=== PATIENT | female | born 1995 | race Caucasian/White ===

== ENCOUNTER 2017-01-12 21:50 | Emergency (ER) | payer OTHER ==
[~2017-01-12] VITALS: Ht 160 cm; Wt 103.5 kg
[~2017-01-12 21:50] MED LIST: CLIN-73 PO; NAPR-260 PO
[2017-01-12 21:53] VITALS: Ht 160 cm; Wt 103.5 kg
[2017-01-12] MEDS ORDERED: LIDOCAINE 1% (MDV) 20 ML INJ INJ STA (23:01)
[2017-01-12] MEDS ORDERED: CLIN-73 PO (23:29)
[2017-01-12] MEDS ORDERED: SULF1TAB31 PO (23:29)
[2017-01-12] MEDS ORDERED: IBUP-1542 PO (23:29)
[2017-01-12] MEDS ORDERED: HYDR-906 PO (23:29)
--- NOTE | 2017-01-12 23:32 | ERD ---
ER Documentation Chief Complaint Date/Time DATE: 01/12/17 TIME: 23:30 Chief Complaint CYST/ABSCESS ON HER LEFT UPPER ARM HPI 21-year-old female presents with an area of redness and swelling to her left axilla this is been for 1 week. It is painful and red and getting larger. Denies any fever bleeding or drainage. Pain is 8 out of 10 worse when touched or moved. ROS All systems reviewed and are negative except as per history of present illness. Medications Home Meds Active Scripts Hydrocodone/Acetaminophen (Manquin 5-325 Tablet) 1 Each Tablet, 1 EACH PO Q6, #20 TAB Prov:GILLIAN LUNDBERG PA-C 01/12/17 Ibuprofen* (Ibuprofen*) 600 Mg Tablet, 600 MG PO Q6, #30 TAB Prov:GILLIAN LUNDBERG PA-C 01/12/17 Clindamycin Hcl* (Clindamycin Hcl*) 300 Mg Capsule, 300 MG PO TID for 10 Days, CAP Prov:GILLIAN LUNDBERG PA-C 01/12/17 Sulfamethoxazole/Trimethoprim* (Bactrim Ds* Tablet) 1 Each Tablet, 1 TAB PO BID , #14 TAB Prov:GILLIAN LUNDBERG PA-C 01/12/17 Naproxen* (Naprosyn*) 500 Mg Tablet, 500 MG PO BID Y for PAIN AND/OR INFLAMMATION, #20 TAB Prov:Naty Swann PA-C 07/17/16 Clindamycin Hcl* (Clindamycin Hcl*) 300 Mg Capsule, 450 MG PO TID for 7 Days, # 21 CAP Prov:Naty Swann PA-C 07/17/16 Allergies Allergies: Coded Allergies: Penicillins (Verified Allergy, Intermediate, Rash, 07/17/16) FmHx Family History: No diabetes Physical Exam Vitals Vital Signs Date Time Temp Pulse Resp B/P Pulse Ox O2 Delivery O2 Flow Rate FiO2 01/12/17 21:53 98.8 79 18 121/73 100 Physical Exam Const: [] Head: Atraumatic Eyes: Normal Conjunctiva ENT: Normal External Ears, Nose and Mouth. Neck: Full range of motion..~ No meningismus. Resp: Clear to auscultation bilaterally Cardio: Regular rate and rhythm, no murmurs Abd: Soft, non tender, non distended. Normal bowel sounds Skin: Left upper extremity has an area of erythema and induration with fluctuance approximately 4 cm in diameter at the axilla Results 24 hrs Current Medications Medications (Trade) Dose Ordered Sig/Doris Route PRN Reason Start Time Stop Time Status Last Admin Dose Admin Lidocaine (Xylocaine 1% (Mdv) 20 ml) 20 ml ONCE STAT INJ 01/12/17 23:01 01/12/17 23:02 DC Procedures/MDM 21-year-old female has abscess. It was prepped with Betadine 1% lidocaine was used to anesthetize the wound. A small incision made with an 11 blade was used to open it up and copious amounts of drainage was drained. Patient tolerated the procedure well. Wound was dressed and bandaged she was given a prescription for ibuprofen, Manquin, and clindamycin. Recommended this patient follow up with her primary care doctor within 48 hours or return to the emergency room for any worsening of symptoms. However this time I do believe there is suitable for outpatient management. I answered all their questions and they agreed with the plan and were discharged home. Departure Diagnosis: Primary Impression: Abscess Condition: Stable Patient Instructions: Abscess, Incision And Drainage Additional Instructions: Call your primary care doctor TOMORROW for an appointment during the next 1-2 days.See the doctor sooner or return here if your condition worsens before your appointment time. GILLIAN LUNDBERG PA-C January 12, 2017 23:32
[2017-01-13] MEDS ORDERED: HYDROCODONE/APAP (5/325) TAB PO ONE
== END 2017-01-13 02:18 | disposition home or self-care (01) ==
LOC: FTE 21:50
DX: L02.414 Cutaneous abscess of left upper limb (principal)
CPT/HCPCS: 10060; Z7502; Z7610

== ENCOUNTER 2017-03-24 05:39 | Day surgery (SDC) | payer OTHER ==
[2017-03-23 14:54] VITALS: Ht 160 cm; Wt 99.2 kg
[2017-03-24] VITALS (20 sets, daily range): BP systolic 107–163; BP diastolic 63–100; PULSE 92–116; RESP 16–44
[~2017-03-24] VITALS: Ht 160 cm; Wt 99.2 kg
[~2017-03-24 05:39] MED LIST changes: +HYDR-906 PO; +IBUP-1542 PO; +SULF1TAB31 PO
[2017-03-24] MEDS ORDERED: CEFAZOLIN 2 GM/50 ML (PMX) 50 ML IVPB ONE (06:00)
[2017-03-24] MEDS ORDERED: DEPO MEDROL (06:39)
[2017-03-24] MEDS ORDERED: PROPOFOL 200 MG INJ ONE (07:00)
[2017-03-24] MEDS ORDERED: LACTATED RINGER'S 1,000 ML IV* SCH (07:00)
--- NOTE | 2017-03-24 07:02 | HPN ---
Date/Time of Note Date/Time of Note DATE: 03/24/17 TIME: 07:02 Interval H&P Admission Note Pt. seen H&P reviewed: No system changes JULIUS JANE MD Mar 24, 2017 07:02
[2017-03-24] MEDS ORDERED: FENTAnyl 50 MCG/ML VIAL ONE ×3 (08:12→09:40)
[2017-03-24] MEDS ORDERED: PROVENTIL HFA 6.7GM INHALER ONE (08:22)
[2017-03-24] MEDS ORDERED: DEXAMETHASONE 4 MG/ML 1 ML INJ ONE (08:23)
[2017-03-24] MEDS ORDERED: CLINDAMYCIN 900 MG/D5W (PMX) 50 ML IVPB ONE (08:39)
[2017-03-24] MEDS ORDERED: PROPOFOL 20 ML ONE (08:39)
[2017-03-24] MEDS ORDERED: ROCURONIUM 50 MG INJ ONE ×2 (08:39→09:08)
[2017-03-24] MEDS ORDERED: LIDOCAINE 2% (SDV) 5 ML INJ ONE (08:39)
[2017-03-24] MEDS ORDERED: SUCCINYLCHOLINE CHLORIDE 100 MG/5 ML SYG IV ONE (08:39)
[2017-03-24] MEDS ORDERED: HYDROmorphONE (0.2 MG/ML) 10ML SYG IV PRN ×2 (09:00)
[2017-03-24] MEDS ORDERED: FENTAnyl 50 MCG/ML VIAL IV PRN ×2 (09:00)
[2017-03-24] MEDS ORDERED: RACEPINEPHRINE 2.25%(NEB) 0.5 ML AMP HHN ONE (09:00)
[2017-03-24] MEDS ORDERED: ONDANSETRON 4 MG INJ IV PRN ×2 (09:00→12:30)
[2017-03-24] MEDS ORDERED: DIPHENHYDRAMINE 50 MG INJ IV PRN (09:00)
[2017-03-24] MEDS ORDERED: MEPERIDINE 25 MG INJ IV PRN (09:00)
[2017-03-24] MEDS ORDERED: ALBUTEROL 0.083% (NEB) 2.5 MG/3 ML AMP HHN ONE (09:00)
[2017-03-24] MEDS ORDERED: METOCLOPRAMIDE 10 MG INJ IV PRN (09:00)
[2017-03-24] MEDS ORDERED: ROPIVACAINE 0.5 % 30 ML VIAL ONE (09:34)
[2017-03-24] MEDS ORDERED: SUGAMMADEX SODIUM 200 MG/2 ML VIAL IV ONE (09:48)
[2017-03-24] MEDS: HYDROmorphONE (0.2 MG/ML) 10ML SYG IV PRN ×2 (10:34→11:05)
[2017-03-24] MEDS ORDERED: ALBUTEROL 0.083% (NEB) 2.5 MG/3 ML AMP HHN PRN (12:30)
[2017-03-24] MEDS: LACTATED RINGER'S 1,000 ML IV SCH ×2 (12:43→22:20)
[2017-03-24] MEDS: IBUPROFEN 600 MG TAB PO SCH ×2 (17:47→23:36)
[2017-03-24] MEDS: OXYCODONE/ACETAMINOPHEN (5/325) TAB PO PRN (22:51)
[2017-03-25 02:17] VITALS: BP 113/57; RESP 18
[2017-03-25] MEDS: LACTATED RINGER'S 1,000 ML IV SCH ×2 (05:00→10:41)
[2017-03-25] MEDS: IBUPROFEN 600 MG TAB PO SCH ×2 (06:19→13:25)
[2017-03-25 08:00] VITALS: BP 105/60; PULSE 78; RESP 20
[2017-03-25] MEDS: OXYCODONE/ACETAMINOPHEN (5/325) TAB PO PRN (10:46)
--- NOTE | 2017-03-25 15:04 | PD.PPDC ---
FINISHER HAND Discharge Instruction Diagnosis Final Diagnosis: left paratubal cyst Condition Patient Condition: Stable Diet Diet: Resume Regular Diet Activity/Restrictions Activity: May Shower Restrictions: No Exercising No Lifting Minimize Stair-climbing No Sexual Activity Nothing in the Vagina No Sealy No Tampons, douche Wound/Drain Care Instructions Wound/Drain Care Instructions: Wash with soap and water Keep clean and dry Follow-up Follow-up with Physician: 2, Week/Weeks Return to clinic for SENIOR PROJECT LEADER/TEAM LEAD Instructions: Fever greater than 101 Chills Worsening abdominal pain Excessive Vaginal Bleeding More than 2 pads per hour Unable to tolerate diet OB Instructions: Headache Surgical Instructions: Incisional Drainage Incisional Redness JULIUS JANE MD Mar 25, 2017 15:04
--- NOTE | 2017-03-25 15:09 | DS ---
Date/Time of Note Date/Time of Note DATE: 03/25/17 TIME: 15:07 Discharge Summary Admission/Discharge Info Admit Date/Time Discharge Date/Time 03/25/17 Discharge Diagnosis left parATUBAL CYST Patient Condition: Good Procedures EXP LAP LT PARAOVARIAN CYSTECTOMY Hospital Course P.O UNEVENFUL HAD B.M TOLERATING DIET WELL Home Meds Reported Medications [depo-medrol] No Conflict Check, q 3 mos 03/24/17 Discontinued Scripts Hydrocodone/Acetaminophen ([place] 5-325 Tablet) 1 Each Tablet, 1 EACH PO Q6, #20 TAB Prov:GILLIAN LUNDBERG PA-C 01/12/17 Ibuprofen* (Ibuprofen*) 600 Mg Tablet, 600 MG PO Q6, #30 TAB Prov:GILLIAN LUNDBERG PA-C 01/12/17 Clindamycin Hcl* (Clindamycin Hcl*) 300 Mg Capsule, 300 MG PO TID for 10 Days, CAP Prov:GILLIAN LUNDBERG PA-C 01/12/17 Sulfamethoxazole/Trimethoprim* (Bactrim Ds* Tablet) 1 Each Tablet, 1 TAB PO BID , #14 TAB Prov:GILLIAN LUNDBERG PA-C 01/12/17 Naproxen* (Naprosyn*) 500 Mg Tablet, 500 MG PO BID Y for PAIN AND/OR INFLAMMATION, #20 TAB Prov:Naty Swann PA-C 07/17/16 Clindamycin Hcl* (Clindamycin Hcl*) 300 Mg Capsule, 450 MG PO TID for 7 Days, # 21 CAP Prov:Naty Swann PA-C 07/17/16 Follow-up Plan 2WEEKS Primary Care Provider Zofia Wasserman Time spent on discharge: < 30 minutes JULIUS JANE MD Mar 25, 2017 15:09
--- NOTE | 2017-03-27 10:40 | OPR ---
DATE OF OPERATION: 03/24/2017 PREOPERATIVE DIAGNOSIS: Left ovarian cyst. POSTOPERATIVE DIAGNOSIS: Left paratubal cyst which is approximately 27 cm in diameter. OPERATION PERFORMED: Exploratory laparotomy and left paraovarian cystectomy. SURGEON: Yamilka Shaikh MD CARD DECORATOR: Antolin Castillo MD ANESTHESIA: General. ANESTHESIOLOGIST: Blake Mcnally MD ESTIMATED BLOOD LOSS: Minimal, less than 30 mL. DESCRIPTION OF PROCEDURE: Under appropriate induction of general anesthesia, the patient was placed in the frog position. Zepeda catheter was introduced under sterile condition. Repositioned to supine and abdominal wall was prepped and draped in the usual aseptic manner. A transverse incision was made approximately 12 cm in length. The incision was carried down through the subcutaneous tissue to the anterior rectus tissue which was incised transversely the length of the incision. The fascia was incised transversely and the fascial flap was created by blunt and sharp dissection with tendonous attachments everted downward. Two rectus muscles split in the midline and the peritoneal cavity was entered digitally. The placed was placed in Trendelenburg position, and upon entering the peritoneal cavity there was a blockage by a large cystic mass which surface was smooth. There was no excrescences. At this point it was decided to enucleate the cyst since the size of the cystic mass was humongous and before draining the cystic contents enucleation was probably the best way to do when the cystic structure was still there. Overlying serosa was incised and this was from the underlying cystic structures by using Spring and from the overlying tissue. It was realized the size is more than 20 cm approximately and at this point it was decided to drain the cystic contents, which was done by a small needle with a syringe in, and clear fluid was obtained. Approximately 150 mL drained out, and reached a point that the cyst was able to be delivered out through the incision. The rest of the bottom of the cystic structure was from the underlying tissue, and there was a small daughter cyst which was approximately 3 cm in diameter. This cyst was removed intact except multiple draining sites, which was clamped with a Spring. After the cystic structure was removed from the operative field the pathologist called for the closer exam and possible frozen section. After the cystic structure was removed and originated from the paratubal area instead of ovarian. There was no significant bleeding except a few spots of oozing, which was controlled with multiple sutures using 2-0 chromic catgut and hemostasis was secured. The mesosalpinx was completely occupied by this humongous cystic structure which was removed, and the defect was closed with a 2-0 chromic catgut in continuous manner. The fimbria was away from the incisional site, but somehow distorted by this large cystic mass which we are not able to guess how long it has been there. The tube also on the left side was shortened, but it was away from the incision. In order to prevent adhesions from the incisional site to the tube, this incision was covered with Intercede sewn on top of it to prevent further adhesion development. No bleeding was noted. The procedure was completed. Irrigation was done. The parietal peritoneum was closed using 0 chromic catgut in continuous manner, minimus closed with 0 chromic catgut continuous manner. The fascia closed 1-0 Vicryl in continuous manner in 2 segments. The subcutaneous tissues irrigated and this layer approximated with 2- 0 plain in continuous manner after adequate hemostasis was secured. The skin closed with Insorb. Pressure dressing applied. Estimated blood loss less than 30 mL. The patient withstood the procedure well and was sent to the recovery room in stable condition. Dictated By: Yamilka Shaikh MD /[email or web address]/jack /Document#: [id number]
== END 2017-03-25 16:56 | disposition home or self-care (01) ==
LOC: SDS 05:39 → PP2 11:52 → SDS 03-25 16:56
PROVIDERS: ATTEND Obstetrics & Gynecology
DX: N83.8 Other noninflammatory disorders of ovary, fallopian tube and broad ligament (principal); D27.1 Benign neoplasm of left ovary; J45.909 Unspecified asthma, uncomplicated
CPT/HCPCS: 58925; 86850; 86900; 86901; 86920; 87086; 88104; 88305; 94640; 94664; J1170; J1200; J2795; J3010; J7120; J7999; Z7512; Z7610; J1100

== ENCOUNTER 2017-12-26 21:06 | Emergency (ER) | END 2017-12-26 21:42 | disposition home or self-care (01) ==

== ENCOUNTER 2017-12-28 19:49 | Emergency (ER) | END 2017-12-29 01:16 | disposition home or self-care (01) ==

== ENCOUNTER 2018-08-28 02:08 | Emergency (ER) | payer OTHER ==
[~2018-08-28] VITALS: Ht 160 cm; Wt 116.4 kg
[~2018-08-28 02:08] MED LIST changes: -CLIN-73 PO; +CLIN300C10 PO; +DEPO MEDROL; -HYDR-906 PO; -NAPR-260 PO; -SULF1TAB31 PO
[2018-08-28 02:12] VITALS: Ht 160 cm; Wt 116.4 kg
[2018-08-28] MEDS ORDERED: ALBUTEROL 0.083% (NEB) 2.5 MG/3 ML AMP HHN STA (03:45)
--- NOTE | 2018-08-28 03:45 | ERD ---
ER Documentation Chief Complaint Chief Complaint cough/sob since yesterday. mild wheezing HPI This is a 23-year-old female who presents here in the emergency department for cough, wheezing. Stated that she is having asthma attack and that her inhaler is not working. LMP: April 2018. M1. Denies headache, head injury, loss of consciousness, dizziness, neck pain, neck stiffness, throat pain, difficulty swallowing, difficulty breathing lying flat, shoulder pain, chest pain, back pain, abdominal pain, nausea, vomiting, constipation, diarrhea, urinary symptoms, or possibility being , loss of bowel and bladder control, trauma, injury, falls, difficulty walking due to pain, numbness or tingling sensation, calf pain, recent travel, recent major surgery in the last 3 weeks, calf pain, recent long travel, recent exposure to any illness, recent antibiotic use in the last 3 months, fever, chills, seizures. Past medical history: Asthma. Surgical history: Social: Denies smoking, use of alcoholic beverages, use of illegal drugs. ROS All systems reviewed and are negative except as per history of present illness. Medications Home Meds Active Scripts Benzonatate* (Tessalon Perle*) 100 Mg Capsule, 100 MG PO Q8H PRN for COUGH, #15 CAP Prov:DENISE HOOKS 08/28/18 Albuterol Sulfate* (Proair HFA*) 8.5 Gm Hfa.aer.ad, 2 PUFF INH Q4H PRN for WHEEZING AND SOB, #1 INHALER Prov:DENISE HOOKS F 08/28/18 Prednisone* (Prednisone*) 20 Mg Tab, 40 MG PO DAILY for 4 Days, TAB Prov:DENISE HOOKS F 08/28/18 Ibuprofen* (Motrin*) 600 Mg Tab, 600 MG PO Q6H PRN for PAIN AND OR ELEVATED TEMP, #30 TAB Prov:ISABEL COX NP 12/26/17 Clindamycin Hcl* (Clindamycin Hcl*) 300 Mg Capsule, 300 MG PO TID for 10 Days, CAP Prov:ISABEL COX NP 12/26/17 Reported Medications [depo-medrol] No Conflict Check, q 3 mos 03/24/17 Allergies Allergies: Coded Allergies: Penicillins (Verified Allergy, Intermediate, Rash, 12/28/17) PMhx/Soc History of Surgery: Yes (LEFT OVARY CYST REMOVAL) Anesthesia Reaction: No Hx Neurological Disorder: No Hx Respiratory Disorders: Yes (asthma) Hx Cardiac Disorders: No Hx Psychiatric Problems: No Hx Miscellaneous Medical Probl: Yes (LT OVARIAN CYST) Hx Alcohol Use: No Hx Substance Use: Yes (MARIJUANA) Hx Tobacco Use: No Smoking Status: Current some day smoker Physical Exam Vitals Vital Signs Date Temp Pulse Resp B/P (MAP) Pulse Ox O2 O2 Flow FiO2 Time Delivery Rate 08/28/18 98.2 90 20 137/92 98 Room Air 04:58 (107) 08/28/18 80 20 97 21 04:15 08/28/18 98.2 97 18 141/87 98 02:12 (105) Physical Exam Const: No acute distress Head: Atraumatic Eyes: Normal Conjunctiva ENT: Normal External Ears, Nose and Mouth. Throat: Uvula is in midline and nondisplaced. Tonsils are +1 bilaterally without redness without exudates. Able to control tongue movement. No drooling. Tolerating secretions. Patent airway. No tripoding. Neck: Full range of motion. No meningismus. Resp: No accessory muscle use in breathing. Wheezing bilaterally. No retractions noted. No tripoding. Cardio: Regular rate and rhythm, no murmurs Abd: Soft, non tender, non distended. Normal bowel sounds Skin: No petechiae or rashes. Skin appears normal for ethnicity. No skin tenting. No signs of severe dehydration. Back: No midline or flank tenderness Ext: No cyanosis, or edema Neur: Awake and alert. No neurological deficits. Psych: Normal Mood and Affect Results 24 hrs Current Medications Medications Dose Sig/Doris Start Time Status Last (Trade) Ordered Route PRN Stop Time Admin Dose Reason Admin Albuterol 5 mg ONCE STAT 08/28/18 DC 08/28/18 (Proventil HHN 03:45 04:16 0.083% (Neb)) 08/28/18 03:47 Ipratropium 0.5 mg ONCE ONCE 08/28/18 DC 08/28/18 [place] HHN 04:00 04:16 (Atrovent 08/28/18 0.02% 04:01 (Neb)) 10 mg ONCE ONCE 08/28/18 DC 08/28/18 Dexamethasone IM 04:00 04:00 (Decadron) 08/28/18 04:01 Procedures/MDM Diagnostic tests: Clinical exam. Treatment: Albuterol and Atrovent breathing treatment. Decadron IM. Re-evaluation: Speaks full and clear sentences. No tripoding. Respirations even and unlabored. No accessory muscle use of breathing. Lung sounds are clear to auscultation. Stated that she feels much better at this time and that she is ready to go home. Differential diagnosis I have low suspicion for airway obstruction, angioedema, anaphylactic shock, bronchospasm, status asthmaticus, pneumonia, sepsis, severe dehydration. Final diagnosis: Asthma exacerbation. Prescription: Prednisone. Pro-air. Tessalon Candidaes. Follow-up with PCP in the next 24-48 hours. Come back here in the emergency department for any new symptoms or any worsening symptoms. All questions and concerns were answered. Patient and family members verbalized understanding and agreed with plan of care. Hemodynamically stable on discharge. Departure Diagnosis: Primary Impression: Asthma exacerbation Condition: Stable Additional Instructions: Follow-up with PCP in the next 24-48 hours. Come back here in the emergency department for any new symptoms or any worsening symptoms. DENISE HOOKS Aug 28, 2018 03:45
[2018-08-28] MEDS ORDERED: PRED20TA PO (03:54)
[2018-08-28] MEDS ORDERED: ALBU8.5H8 INH (03:54)
[2018-08-28] MEDS ORDERED: BENZ-6 PO (03:55)
[2018-08-28] MEDS ORDERED: IPRATROPIUM (NEB) 0.5 MG/2.5 ML AMP HHN ONE (04:00)
[2018-08-28] MEDS ORDERED: DEXAMETHASONE 10 MG/ML 1 ML INJ IM ONE (04:00)
[2018-08-28 04:58] VITALS: BP 137/92; PULSE 90; RESP 20
== END 2018-08-28 05:00 | disposition home or self-care (01) ==
LOC: FTE 02:08
DX: J45.901 Unspecified asthma with (acute) exacerbation (principal); F17.210 Nicotine dependence, cigarettes, uncomplicated
CPT/HCPCS: 94664; 96372; J1100; Z7502; Z7610

== ENCOUNTER 2018-10-17 22:26 | Emergency (ER) | payer OTHER ==
[~2018-10-17] VITALS: Ht 160 cm; Wt 113.0 kg
[~2018-10-17 22:26] MED LIST changes: +ALBU8.5H8 INH; -CLIN300C10 PO; -DEPO MEDROL
[2018-10-17 22:34] VITALS: Ht 160 cm; Wt 113.0 kg
[2018-10-18] MEDS ORDERED: NITR-58 PO (00:20)
[2018-10-18 01:10] VITALS: BP 131/85; PULSE 90; RESP 18
--- NOTE | 2018-10-30 16:12 | ERD ---
ER Documentation Chief Complaint Chief Complaint PELVIC PAIN WITH FREQUENT URINATION X 1 DAY HPI 23-year-old female presents with 1 day of pelvic pain with frequency and urgency. No hematuria. No fever. No nausea or vomiting. ROS All systems reviewed and are negative except as per history of present illness. Medications Home Meds Active Scripts Nitrofurantoin Monohyd Macrocr* (Macrobid*) 100 Mg Capsr, 100 MG PO BID for 7 Days, CAP Prov:GILLIAN LUNDBERG PA-C 10/18/18 Albuterol Sulfate* (Proair HFA*) 8.5 Gm Hfa.aer.ad, 2 PUFF INH Q4H PRN for WHEEZING AND SOB, #1 INHALER Prov:DENISE HOOKS F 08/28/18 Ibuprofen* (Motrin*) 600 Mg Tab, 600 MG PO Q6H PRN for PAIN AND OR ELEVATED TEMP, #30 TAB Prov:ISABEL COX BLEMISH REMOVER 12/26/17 Allergies Allergies: Coded Allergies: Penicillins (Verified Allergy, Intermediate, Rash, 12/28/17) PMhx/Soc Medical and Surgical Hx: pt denies Medical Hx, pt denies Surgical Hx History of Surgery: Yes (left ovarian cyst removal) Anesthesia Reaction: No Hx Neurological Disorder: No Hx Respiratory Disorders: Yes (Asthma) Hx Cardiac Disorders: No Hx Psychiatric Problems: No Hx Miscellaneous Medical Probl: No Hx Alcohol Use: No Hx Substance Use: Yes (Marijuana) Hx Tobacco Use: No Smoking Status: Never smoker FmHx Family History: No diabetes Physical Exam Physical Exam Const: No acute distress Head: Atraumatic Eyes: Normal Conjunctiva ENT: Normal External Ears, Nose and Mouth. Neck: Full range of motion. No meningismus. Resp: Clear to auscultation bilaterally Cardio: Regular rate and rhythm, no murmurs Abd: Soft, non tender, non distended. Results 24 hrs Laboratory Tests Test 10/18/18 00:03 10/18/18 00:05 Bedside Urine pH (LAB) 6.5 Bedside Urine Protein (LAB) 2+ Bedside Urine Glucose (UA) Negative Bedside Urine Ketones (LAB) Negative Bedside Urine Blood 3+ Bedside Urine Nitrite (LAB) Negative Bedside Urine Leukocyte Esterase (L 2+ POC Beta HCG, Qualitative NEGATIVE Procedures/MDM Findings consistent with urinary tract infection. Patient discharged with Macrobid. Patient counseled regarding my diagnostic impression and care plan. Prior to discharge all questions answered. Pt agrees with treatment plan and understands strict return precautions. Pt is instructed to follow up with primary care provider within 24-48 hours. Precautionary instructions provided including instructions to return to the ER if not improving or for any worsening or changing symptoms or concerns. Departure Diagnosis: Primary Impression: Urinary tract infection Condition: Stable Patient Instructions: Understanding Urinary Tract Infections (UTIs) Additional Instructions: Call your primary care doctor TOMORROW for an appointment during the next 1-2 days.See the doctor sooner or return here if your condition worsens before your appointment time. GILLIAN LUNDBERG PA-C Oct 30, 2018 16:12
== END 2018-10-18 01:11 | disposition home or self-care (01) ==
LOC: FTE 22:26
DX: N39.0 Urinary tract infection, site not specified (principal); J45.909 Unspecified asthma, uncomplicated
CPT/HCPCS: 81003; 81025; Z7502; 99283

== ENCOUNTER 2019-01-09 22:23 | Emergency (ER) | payer OTHER ==
[~2019-01-09] VITALS: Ht 160 cm; Wt 109.3 kg
[~2019-01-09 22:23] MED LIST changes: +NITR-58 PO
[2019-01-09 22:37] VITALS: Ht 160 cm; Wt 109.3 kg
[2019-01-10] MEDS ORDERED: ONDANSETRON 4 MG INJ IV STA (00:09)
[2019-01-10] MEDS ORDERED: KETOROLAC 30 MG INJ IV STA (00:09)
[2019-01-10] MEDS ORDERED: SOD CHLORIDE 0.9% 1,000 ML IV STA (00:09)
[2019-01-10] MEDS ORDERED: ONDA4TAB14 PO (02:53)
--- NOTE | 2019-01-10 03:00 | ERD ---
ER Documentation Chief Complaint Chief Complaint nausea/vomiting/abd pain x 3 weeks HPI Patient is a 23-year-old female who presents to the ER for concerns of intermittent abdominal pain, nausea and vomiting for the last 3 weeks. Patient states the pain is localized to left lower quadrant. She states that the pain comes and goes. She states that sometimes she has mucousy stools and other times she is constipated. She denies any fevers or chills. Patient does admit to vomiting. She states she vomited 2-3 times, nonbloody, nonbilious today. Patient denies any recent travel. No recent surgeries. Patient denies any UTI symptoms. Patient states she does have a decreased appetite. Patient states she does marijuana daily for her abdominal pain. ROS All systems reviewed and are negative except as per history of present illness. Medications Home Meds Active Scripts Ondansetron (Ondansetron Odt) 4 Mg Tab.rapdis, 4 MG PO Q6H PRN for NAUSEA AND/OR VOMITING, #10 TAB Prov:RYLEE ROWE PA-C 01/10/19 Nitrofurantoin Monohyd Macrocr* (Macrobid*) 100 Mg Capsr, 100 MG PO BID for 7 Days, CAP Prov:GILLIAN LUNDBERG PA-C 10/18/18 Albuterol Sulfate* (Proair HFA*) 8.5 Gm Hfa.aer.ad, 2 PUFF INH Q4H PRN for WHEEZING AND SOB, #1 INHALER Prov:DENISE HOOKS 08/28/18 Ibuprofen* (Motrin*) 600 Mg Tab, 600 MG PO Q6H PRN for PAIN AND OR ELEVATED TEMP, #30 TAB Prov:ISABEL COX NP 12/26/17 Allergies Allergies: Coded Allergies: Penicillins (Verified Allergy, Intermediate, Rash, 12/28/17) PMhx/Soc Medical and Surgical Hx: pt denies Medical Hx, pt denies Surgical Hx History of Surgery: Yes (left ovarian cyst removal) Anesthesia Reaction: No Hx Neurological Disorder: No Hx Respiratory Disorders: Yes (Asthma) Hx Cardiac Disorders: No Hx Psychiatric Problems: No Hx Miscellaneous Medical Probl: No Hx Alcohol Use: No Hx Substance Use: Yes (Marijuana use) Hx Tobacco Use: No Smoking Status: Never smoker FmHx Family History: No diabetes Physical Exam Vitals Vital Signs Date Temp Pulse Resp B/P (MAP) Pulse Ox O2 O2 Flow FiO2 Time Delivery Rate 01/09/19 99.7 94 18 158/89 94 22:37 (112) Physical Exam GENERAL: Well-developed, well-nourished female. Appears in no acute distress. Speaking in full sentences. HEAD: Normocephalic, atraumatic. EYES: Pupils are equally reactive bilaterally. EOMs grossly intact. No conjunctival erythema. ENT: Moist mucous membranes. No uvula deviation. No kissing tonsils. NECK: Supple. No meningismus. Normal range of motion of the neck. LUNG: Clear to auscultation bilaterally. No rhonchi, wheezing, rales or coarse breath sounds. HEART: Regular rate and rhythm. No murmurs, rubs or gallops. ABDOMEN: Soft, and nondistended. Tender to palpation in the left lower quadrant. Positive bowel sounds in all four quadrants. No rebound tenderness, no guarding. (-) McBurney's point tenderness. No CVA tenderness. BACK: No midline tenderness. EXTREMITIES: Equal pulses bilaterally. No peripheral clubbing, cyanosis or edema. No unilateral leg swelling. NEUROLOGIC: Alert and oriented. Moving all four extremities without any difficulty. Normal speech. Steady gait. SKIN: Normal color. Warm and dry. No rashes or lesions. Result Diagram: 01/10/19 0024 01/10/19 0024 Results 24 hrs Laboratory Tests Test 01/10/19 00:24 01/10/19 00:27 White Blood Count 14.0 10^3/ul Red Blood Count 4.84 10^6/ul Hemoglobin 12.5 g/dl Hematocrit 39.4 % Mean Corpuscular Volume 81.4 fl Mean Corpuscular Hemoglobin 25.8 pg Mean Corpuscular Hemoglobin Concent 31.7 g/dl Red Cell Distribution Width 14.3 % Platelet Count 307 10^3/UL Mean Platelet Volume 11.8 fl Immature Granulocytes % 0.200 % Neutrophils % 75.3 % Lymphocytes % 19.1 % Monocytes % 4.5 % Eosinophils % 0.7 % Basophils % 0.2 % Nucleated Red Blood Cells % 0.0 /100WBC Immature Granulocytes # 0.030 10^3/ul Neutrophils # 10.5 10^3/ul Lymphocytes # 2.7 10^3/ul Monocytes # 0.6 10^3/ul Eosinophils # 0.1 10^3/ul Basophils # 0.0 10^3/ul Nucleated Red Blood Cells # 0.0 10^3/ul Urine Color YELLOW Urine Clarity SLIGHTLY CLOUDY Urine pH 7.0 Urine Specific [place] 1.014 Urine Ketones NEGATIVE mg/dL Urine Nitrite NEGATIVE mg/dL Urine Bilirubin NEGATIVE mg/dL Urine Urobilinogen NEGATIVE mg/dL Urine Leukocyte Esterase 3+ Jean/ul Urine Microscopic RBC 2 /HPF Urine Microscopic WBC 5 /HPF Urine Squamous Epithelial Cells FEW /HPF Urine Bacteria FEW /HPF Urine Mucus MODERATE /HPF Urine Hemoglobin 1+ mg/dL Urine Glucose NEGATIVE mg/dL Urine Total Protein NEGATIVE mg/dl Sodium Level 144 mmol/L Potassium Level 4.3 mmol/L Chloride Level 105 mmol/L Carbon Dioxide Level 27 mmol/L Anion Gap 12 Blood Urea Nitrogen 7 mg/dl Creatinine 0.74 mg/dl Est Glomerular Filtrat Rate mL/min > 60 mL/min Glucose Level 93 mg/dl Calcium Level 10.0 mg/dl Total Bilirubin 0.6 mg/dl Direct Bilirubin 0.00 mg/dl Indirect Bilirubin 0.6 mg/dl Aspartate Amino Transf (AST/SGOT) 17 IU/L Alanine Aminotransferase (ALT/SGPT) 22 IU/L Alkaline Phosphatase 90 IU/L Total Protein 7.8 g/dl Albumin 4.5 g/dl Globulin 3.30 g/dl Albumin/Globulin Ratio 1.36 Lipase 62 U/L POC Beta HCG, Qualitative NEGATIVE Current Medications Medications Dose Sig/Doris Start Time Status Last (Trade) Ordered Route PRN Stop Time Admin Dose Reason Admin Sodium 1,000 ml @ Q1H STAT 01/10/19 DC 01/10/19 Chloride 1,000 mls/hr IV 00:09 01/10/19 00:41 01:08 Ondansetron 4 mg ONCE STAT 01/10/19 DC 01/10/19 HCl (Zofran IV 00:09 01/10/19 00:41 Inj) 00:11 Ketorolac 30 mg ONCE STAT 01/10/19 DC 01/10/19 Tromethamine IV 00:09 01/10/19 00:41 (Toradol) 00:11 Procedures/MDM ED COURSE: The patient was stable throughout ED course. I kept the patient and/or family informed of laboratory and diagnostic imaging results throughout the ED course. DIAGNOSTIC IMAGING: Read by radiologist. DIAGNOSTIC IMAGING REPORT Patient: STIVEN LOERA : 1995 Age: 23 Sex: F MR #: [id number] DOS: 01/10/19 0009 Ordering MD: RYLEE ROWE PA-C Location: [facility] Room/Bed: PROCEDURE: CT ABDOMEN AND PELVIS WITHOUT CONTRAST CLINICAL INDICATION: Abdominal pain. TECHNIQUE: CT of the abdomen and pelvis was performed without intravenous contrast. Oral contrast was not administered prior to the examination. Coronal and sagittal reformatted images were obtained from the axial source images. Images were reviewed on a high-resolution PACS workstation. DICOM images are available. Dose information: Based on a 32 cm phantom, the estimated radiation dose (CTDIvol mGy) for each series in this exam is 23.01. The estimated cumulative dose (DLP mGy-cm) is 1425.16. One or more of the following dose reduction techniques were used: - Automated exposure control. - Adjustment of the mA and/or kV according to patient size. - Use of iterative reconstruction technique. COMPARISON: None available. FINDINGS: In the absence of intravenous contrast, the study constitutes a limited assessme nt of the solid organs, bowel and vessels. LUNG BASES: Normal noncontrast appearance. ABDOMEN/PELVIS: Liver: Hepatomegaly (19 cm). Gallbladder: Normal noncontrast appearance. Bile ducts: No intrahepatic or extrahepatic biliary duct dilatation. Spleen: Normal noncontrast appearance. Pancreas: Normal noncontrast appearance. Adrenal glands: Normal noncontrast appearance. Kidneys and ureters: Normal noncontrast appearance. Aorta and IVC: Normal size. Lymph nodes: Normal noncontrast appearance. Gastrointestinal tract: The stomach is partly collapsed. Small bowel loops are nondistended. Decompressed sigmoid colon. No pericolonic inflammatory changes. Appendix: The appendix is normal. Bladder: Normal noncontrast appearance. Pelvic Organs: Normal noncontrast appearance. Peritoneal cavity: No free fluid or free intraperitoneal air. Abdominal wall: Small periumbilical hernia containing mesenteric fat only. MUSCULOSKELETAL: Bones: No acute fracture.No suspicious bone lesions. Trace retrospondylolisthesis of L5 on S1. IMPRESSION: 1. Hepatomegaly (19 cm). 2. Small periumbilical hernia containing mesenteric fat only. Please note that in the absence of intravenous contrast the study does not evaluate the patency of the vasculature. RPTAT: HRSR Physician Oumar Date Time Electronically viewed and signed by Shayne Marsh Physician on 01/10/2019 02:06 RR/ CC: RYLEE ROWE PA-C [id number] PROCEDURES: None. MEDICATIONS GIVEN: IV fluids, Zofran, Toradol Patient tolerated medication well with no adverse reactions. Patient reported improvement in pain. MEDICAL DECISION MAKING: This is a 23-year-old female presents the ER for concerns of intermittent left lower quadrant pain, nausea and vomiting for the last 3 weeks.. Vital signs were reviewed. Patient is afebrile. IV line was established. Blood work was obtained. CBC showed WBC count of 14,000. Likely due to vomiting. CMP showed no evidence of electrolyte abnormalities, severe acidosis, alkalosis, renal failure, or liver disease. Lipase showed no evidence of acute pancreatitis. UA did show 3+ leukocyte esterase. Urine test was negative. CT abdomen pelvis showed 1. Hepatomegaly (19 cm). 2. Small periumbilical hernia containing mesenteric fat only. Upon reexamination, patient reported improvement pain. Patient was advised she will need to follow-up with GI specialist for further management of her ongoing symptoms. At this time, patient's presentation was consistent with abdominal pain and UTI. Low suspicion for acute coronary syndrome, AAA, mesenteric ischemia, lower lobe pneumonia, DKA, bowel perforation, cholecystitis, choledocholithiasis, ascending cholangitis, hepatic abscess, pancreatitis, PUD, gastritis, GERD, splenic rupture, diverticulitis, pyelonephritis, nephrolithiasis, appendicitis, constipation, , ectopic , PID, ovarian torsion or tubo-ovarian abscess. She was nontoxic, dry-vnc-laeugbdbi prior to discharge. PRESCRIPTIONS: Zofran, Macrobid DISCHARGE: At this time, patient is stable for discharge and outpatient management. I have instructed the patient to follow-up with his/her primary care physician in 1-2 days. I have instructed the patient to promptly return to the ER at any time for any new or worsening symptoms including increased pain, nausea, vomiting, diarrhea, fever, weakness or LOC. The patient and/or family expressed understanding of and agreement with this plan. All questions were answered. Home care instructions were provided. Disclaimer: Inadvertent spelling and grammatical errors are likely due to EHR/dictation software use and do not reflect on the overall quality of patient care. Also, please note that the electronic time recorded on this note does not necessarily reflect the actual time of the patient encounter. Departure Diagnosis: Primary Impression: Abdominal pain Abdominal location: unspecified location Qualified Codes: R10.9 - Unspecified abdominal pain Additional Impressions: Change in stool Nausea & vomiting Vomiting type: unspecified Vomiting Intractability: unspecified Qualified Codes: R11.2 - Nausea with vomiting, unspecified Hepatomegaly UTI (urinary tract infection) Condition: Fair Patient Instructions: Abdominal Pain, Nausea and Vomiting-Adult Referrals: CHENTE PATTERSON MD, RAHUL K. CHITAYAT, RON DESAI,BEBA PAINTING,LAMBERTO ALBRIGHT,ARUN FLORES,EUSEBIO PATTERSON,[facility] YOU HAVE RECEIVED A MEDICAL SCREENING EXAM AND THE RESULTS INDICATE THAT YOU DO NOT HAVE A CONDITION THAT REQUIRES URGENT TREATMENT IN THE EMERGENCY DEPARTMENT. FURTHER EVALUATION AND TREATMENT OF YOUR CONDITION CAN WAIT UNTIL YOU ARE SEEN IN YOUR DOCTORS OFFICE WITHIN THE NEXT 1-2 DAYS. IT IS YOUR RESPONSIBILITY TO MAKE AN APPOINTMENT FOR FOLOW-UP CARE. IF YOU HAVE A PRIMARY DOCTOR --you should call your primary doctor and schedule an appointment IF YOU DO NOT HAVE A PRIMARY DOCTOR YOU CAN CALL OUR PHYSICIAN REFERRAL HOTLINE AT IF YOU CAN NOT AFFORD TO SEE A PHYSICIAN YOU CAN CHOSE FROM THE FOLLOWING [facility] CLINICS [facility] [address] [facility] [address] [facility] [address] [facility] [facility] [address] [facility] [facility] [address] [facility]. [facility]. [address] [facility]. [facility] YOU HAVE RECEIVED A MEDICAL SCREENING EXAM AND THE RESULTS INDICATE THAT YOU DO NOT HAVE A CONDITION THAT REQUIRES URGENT TREATMENT IN THE EMERGENCY DEPARTMENT. FURTHER EVALUATION AND TREATMENT OF YOUR CONDITION CAN WAIT UNTIL YOU ARE SEEN IN YOUR DOCTORS OFFICE WITHIN THE NEXT 1-2 DAYS. IT IS YOUR RESPONSIBILITY TO MAKE AN APPOINTMENT FOR FOLOW-UP CARE. IF YOU HAVE A PRIMARY DOCTOR --you should call your primary doctor and schedule and appointment IF YOU DO NOT HAVE A PRIMARY DOCTOR YOU CAN CALL OUR PHYSICIAN REFERRAL HOTLINE AT . IF YOU CAN NOT AFFORD TO SEE A PHYSICIAN YOU CAN CHOSE FROM THE FOLLOWING [facility] INSTITUTIONS: [facility] [address] [place] [address] [facility] [address] [place] [address] [facility] [address] [place] [address] Additional Instructions: Follow-up with a GI specialist on outpatient basis. He will likely need endoscopy versus colonoscopy. Stool studies advised on an outpatient basis. Call your primary care doctor TOMORROW for an appointment during the next 1-2 days.See the doctor sooner or return here if your condition worsens before your appointment time. RYLEE ROWE PA-C January 10, 2019 03:00
[2019-01-10] MEDS ORDERED: NITR-58 PO (03:05)
[2019-01-10 03:53] VITALS: BP 120/90; PULSE 72; RESP 18
== END 2019-01-10 03:58 | disposition home or self-care (01) ==
LOC: FTE 22:23
DX: R16.0 Hepatomegaly, not elsewhere classified (principal); J45.909 Unspecified asthma, uncomplicated; N39.0 Urinary tract infection, site not specified; R19.5 Other fecal abnormalities
CPT/HCPCS: 36415; 74176; 80053; 81001; 81025; 83690; 85025; 96361; 96374; 96375; J1885; J2405; J7030; Z7502

== ENCOUNTER 2019-02-04 00:06 | Emergency (ER) | payer OTHER ==
[~2019-02-04] VITALS: Ht 162.6 cm; Wt 110.0 kg
[~2019-02-04 00:06] MED LIST changes: +ONDA4TAB14 PO
[2019-02-04 00:08] VITALS: Ht 162.6 cm; Wt 110.0 kg
[2019-02-04] MEDS ORDERED: ONDANSETRON INJ 8 MG in DEXTROSE 5% 50 ML IV STA (00:46)
[2019-02-04] MEDS ORDERED: SOD CHLORIDE 0.9% 1,000 ML IV STA (00:46)
--- NOTE | 2019-02-04 00:57 | ERD ---
ER Documentation Chief Complaint Chief Complaint NAUSEA/ VOMITING; HX H PYLORI HPI Patient is a 23 years old female no known past medical history with recent diagnosis of H. pylori 1.5 weeks ago presenting to the clinic nausea and emesis since yesterday. Patient reports that she is unable to tolerate oral intake. Patient denies fever, chills, night sweats. Patient admits to watery diarrhea, mild abdominal cramps. Patient reports that she requested antinausea medication from her PCP diagnosed her with pylori and was denied treatment. ROS All systems reviewed and are negative except as per history of present illness. Medications Home Meds Active Scripts Ondansetron Hcl* (Zofran*) 8 Mg Tablet, 8 MG PO Q6H PRN for NAUSEA AND OR VOMITING for 7 Days, TAB Prov:CELSO GUILLORY PA-C 02/04/19 Lorazepam* (Ativan*) 0.5 Mg Tablet, 0.5 MG PO Q8, #10 TAB Prov:CELSO GUILLORY PA-C 02/04/19 Nitrofurantoin Monohyd Macrocr* (Macrobid*) 100 Mg Capsr, 100 MG PO BID for 5 Days, CAP Prov:RYLEE ROWE PA-C 01/10/19 Ondansetron (Ondansetron Odt) 4 Mg Tab.rapdis, 4 MG PO Q6H PRN for NAUSEA AND/OR VOMITING, #10 TAB Prov:RYLEE ROWE PA-C 01/10/19 Nitrofurantoin Monohyd Macrocr* (Macrobid*) 100 Mg Capsr, 100 MG PO BID for 7 Days, CAP Prov:GILLIAN LUNDBERG PA-C 10/18/18 Albuterol Sulfate* (Proair HFA*) 8.5 Gm Hfa.aer.ad, 2 PUFF INH Q4H PRN for WHEEZING AND SOB, #1 INHALER Prov:DENISE HOOKS 08/28/18 Ibuprofen* (Motrin*) 600 Mg Tab, 600 MG PO Q6H PRN for PAIN AND OR ELEVATED TEMP, #30 TAB Prov:ISABEL COX NP 12/26/17 Allergies Allergies: Coded Allergies: Penicillins (Verified Allergy, Intermediate, Rash, 02/04/19) PMhx/Soc History of Surgery: Yes (left ovarian cyst removal) Anesthesia Reaction: No Hx Neurological Disorder: No Hx Respiratory Disorders: Yes (Asthma) Hx Cardiac Disorders: No Hx Psychiatric Problems: No Hx Miscellaneous Medical Probl: No Hx Alcohol Use: No Hx Substance Use: Yes (Marijuana use) Hx Tobacco Use: No Smoking Status: Current every day smoker Physical Exam Vitals Vital Signs Date Temp Pulse Resp B/P (MAP) Pulse Ox O2 O2 Flow FiO2 Time Delivery Rate 02/04/19 100.0 88 18 152/85 99 00:08 (107) Physical Exam Const: No acute distress. Mild lethargic. Head: Atraumatic Eyes: Normal Conjunctiva Resp: Clear to auscultation bilaterally Cardio: Regular rate and rhythm, no murmurs Abd: Soft, non tender, non distended. Normal bowel sounds Back: No midline or flank tenderness Ext: No cyanosis, or edema Neur: Awake and alert Psych: Normal Mood and Affect Results 24 hrs Laboratory Tests Test 02/04/19 01:02 02/04/19 01:04 Urine Color YELLOW Urine Clarity CLOUDY Urine pH 6.0 Urine Specific [place] 1.026 Urine Ketones NEGATIVE mg/dL Urine Nitrite NEGATIVE mg/dL Urine Bilirubin NEGATIVE mg/dL Urine Urobilinogen 1+ mg/dL Urine Leukocyte Esterase 1+ Jean/ul Urine Microscopic RBC 33 /HPF Urine Microscopic WBC 4 /HPF Urine Squamous Epithelial Cells MODERATE /HPF Urine Bacteria FEW /HPF Urine Mucus FEW /HPF Urine Hemoglobin 1+ mg/dL Urine Glucose NEGATIVE mg/dL Urine Total Protein NEGATIVE mg/dl Urine Test NEGATIVE Bedside Urine pH (LAB) 6.0 Bedside Urine Protein (LAB) 1+ Bedside Urine Glucose (UA) Negative Bedside Urine Ketones (LAB) Negative Bedside Urine Blood 3+ Bedside Urine Nitrite (LAB) Negative Bedside Urine Leukocyte Esterase (L Negative Current Medications Medications Dose Sig/Doris Start Time Status Last (Trade) Ordered Route PRN Stop Time Admin Dose Reason Admin Sodium 1,000 ml @ Q1H STAT 02/04/19 DC 02/04/19 Chloride 1,000 mls/hr IV 00:46 02/04/19 01:03 01:45 Ondansetron 54 ml @ ONCE STAT 02/04/19 DC HCl 8 200 mls/hr IV 00:46 02/04/19 mg/Dextrose 01:10 Ondansetron 8 mg ONCE STAT 02/04/19 DC 02/04/19 HCl (Zofran IV 01:06 02/04/19 01:13 Inj) 01:10 10 mg ONCE ONCE 02/04/19 DC 02/04/19 Metoclopramid IM 02:00 02/04/19 01:57 e HCl 02:01 (Reglan) 1,000 mg ONCE STAT 02/04/19 DC Acetaminophen PO 02:00 02/04/19 (Tylenol 02:01 Tab) Lorazepam 0.5 mg ONCE ONCE 02/04/19 DC 02/04/19 (Ativan) IV 02:30 02/04/19 02:24 02:31 [facility] Patient was seen and evaluated for nausea. Patient was started on IV fluids (NPO) and was given Zofran. Urine is negative with urinalysis showing leukocyte esterase and white blood cells which is significant for UTI. Upon informing patient about her UTI, patient reports that she was diagnosed with UTI 3 weeks ago and was given Abx. Provider will run urine culture and inform patient with the results and then change Abx regimen. Patient reports no improvement of nausea with Zofran IV, which was followed by Reglan 10mg IM administered without success. Patient was then given Ativan 0.5 with resolution of symptoms. Patient will be given Ativan for 7 days supply until she completes her H. Pylori treatment. Patient was advised to f/u with her PCP. Departure Diagnosis: Primary Impression: Nausea and vomiting Vomiting type: unspecified Vomiting Intractability: unspecified Qualified Codes: R11.2 - Nausea with vomiting, unspecified Condition: Stable Patient Instructions: Nausea and Vomiting-Adult Referrals: [facility] Additional Instructions: Patient advised to return to the ED immediately for new or worsening symptoms. Patient advised to follow up with primary care provider in the next 24-48 hours. Patient verbalized understanding and agrees with treatment plan and course of action. If patient has no primary care they may follow up with [facility] [address] [place] [id number] or [facility] [address] [place] [address] or [facility] [address] [place] [address] CELSO GUILLORY PA-C Feb 04, 2019 00:57
[2019-02-04] MEDS ORDERED: ONDANSETRON 4 MG INJ IV STA (01:06)
[2019-02-04] MEDS ORDERED: ACETAMINOPHEN 500 MG TAB PO STA (02:00)
[2019-02-04] MEDS ORDERED: METOCLOPRAMIDE 10 MG INJ IM ONE (02:00)
[2019-02-04] MEDS ORDERED: LORAZEPAM 2 MG INJ IV ONE (02:30)
[2019-02-04] MEDS ORDERED: LORA-441 PO (02:58)
[2019-02-04] MEDS ORDERED: ONDA8TAB9 PO (02:58)
[2019-02-04 03:10] VITALS: BP 124/59; PULSE 80; RESP 18
== END 2019-02-04 03:11 | disposition home or self-care (01) ==
LOC: FTE 00:06
DX: R11.2 Nausea with vomiting, unspecified (principal); J45.909 Unspecified asthma, uncomplicated; F17.210 Nicotine dependence, cigarettes, uncomplicated; R10.9 Unspecified abdominal pain
CPT/HCPCS: 81001; 84703; 87086; J2060; J2405; J2765; J7030; Z7610; 81003; 96361; 96372; 96374; 96375